=== PATIENT | female | born 1955 | race Caucasian/White ===

== ENCOUNTER 2018-04-30 00:47 | Outpatient (CLI) | payer OTHER, SELFPAY ==
--- NOTE | 2018-04-30 12:55 | DI.MAMMO_ITS ---
SYMPTOM/DIAGNOSIS: SCREENING, Z12.31 MAMMOGRAMS: Mammograms were interpreted according to the usual protocol including computer analysis with CAD system, tomosynthesis and C view imaging. The breasts are of moderate density with fairly symmetrical distribution of fibroglandular tissue. No dominant mass or clumped microcalcification is identified in either breast. The current examination is compared with previous examinations including 01/2017 and there has been no gross interval change in appearance in comparison with the previous studies. CONCLUSION: No specific evidence of malignancy at this time. Routine screening examinations are suggested at yearly intervals in this age group according to the ACS/ACR guidelines. Category 1. Breast density, Category B. MQSA ASSESSMENT OF FINDINGS: Negative. Category 1. Patient will receive a letter notifying them of these results. BI-RADS category B. There are scattered areas of fibroglandular density.
== END 2018-04-30 01:07 ==
PROVIDERS: PCP Family Medicine; Visit Provider Nurse Practitioner Family
DX: Z12.31 Encounter for screening mammogram for malignant neoplasm of breast (principal)
CPT/HCPCS: 77063; 77067

== ENCOUNTER 2018-12-12 11:06 | Outpatient (CLI) | payer OTHER, SELFPAY ==
[2018-12-12 13:10] LABS: ALT 39 U/L (12-78); AST 25 U/L (15-37); Albumin 3.7 g/dL (3.4-5.0); Alkaline Phosphatase 96 U/L (46-116); Anion Gap 11.2 mmol/L (3-11); BUN 14 mg/dL (7-18); Bilirubin, Total 0.4 mg/dL (0.2-1.0); CO2 27.8 mmol/L (21.0-32.0); CREATININE 0.78 mg/dL (0.55-1.02); Calcium 9.8 mg/dL (8.5-10.1); Calculated LDL 137 mg/dL; Chloride 104 mmol/L (98-107); Cholesterol 243 mg/dL (50-200); Glucose 97 mg/dL (70-100); HDL Cholesterol 41 mg/dL (40-60); Potassium 4.2 mmol/L (3.5-5.1); Sodium 143 mmol/L (136-145); Total Protein 7.3 g/dL (6.4-8.2); Triglyceride 326 mg/dL (30-150)
== END 2018-12-12 11:26 ==
PROVIDERS: PCP Family Medicine; Visit Provider Family Medicine
DX: E78.1 Pure hyperglyceridemia (principal); I10 Essential (primary) hypertension
CPT/HCPCS: 36415; 80053; 80061; 83721

== ENCOUNTER 2018-12-18 01:33 | Outpatient (CLI) | payer OTHER, SELFPAY ==
--- NOTE | 2018-12-18 13:48 | DI.RAD_ITS ---
SYMPTOMS/DIAGNOSIS: EARLY MENOPAUSE, E28.319, PREMATURE DEXA SCAN: DEXA scan was performed according to the usual protocol. Findings for the lumbar spine scanning are a T score of -1.7. Findings for the left hip scanning are a T score of -1.4 with left femoral neck T score of -1.8. Left forearm scanning shows a T score of -1.7. CONCLUSION: Findings consistent with osteopenia according to the WHO criteria. Please note that the lateral vertebral scanogram shows no evidence of a vertebral compression fracture.
== END 2018-12-18 01:53 ==
PROVIDERS: PCP Family Medicine; Visit Provider Family Medicine
DX: E28.319 Asymptomatic premature menopause (principal); M85.88 Other specified disorders of bone density and structure, other site
CPT/HCPCS: 77080

== ENCOUNTER 2019-05-21 01:13 | Outpatient (CLI) | payer OTHER, SELFPAY ==
--- NOTE | 2019-05-21 12:18 | DI.MAMMO_ITS ---
EXAM: MG MAMMO SCREENING CLINICAL HISTORY: screening Z12.39. TECHNIQUE: Full field digital CC and MLO mammographic images were obtained with 3D tomosynthesis and utilizing computer aided detection (CAD). COMPARISON: [id number]. FINDINGS: Breast density: C Masses/Architectural Distortion: None seen. Microcalcifications: No suspicious pleomorphic-type calcifications are seen. Skin Thickening/Nipple Retraction: None. Axilla: Unremarkable. IMPRESSION: 1. BI-RADS category 1, negative. No significant interval change with no specific features of maligna ncy noted. 2. Unless there is more urgent need, screening mammography is recommended, as per [employer] guidelines. BI-RADS Cat 1 - Negative Breast Density - Category C - Heterogeneously dense A negative radiographic report should not delay biopsy if a dominant or clinically suspicious mass is present. Up to ten percent of cancers are not identified on mammography. A negative report may reinforce clinical impression. Adenosis and dense breasts may obscure an underlying neoplasm. False positive reports average 6 to 10%. Patient will receive a letter notifying them of these results.
== END 2019-05-21 01:33 ==
PROVIDERS: PCP Family Medicine; Visit Provider Nurse Practitioner Family
DX: Z12.31 Encounter for screening mammogram for malignant neoplasm of breast (principal)
CPT/HCPCS: 77063; 77067

== ENCOUNTER 2019-12-19 01:44 | Outpatient (CLI) | payer MEDICARE, SELFPAY ==
[2019-12-19 12:30] LABS: ALT 41 U/L (14-59); AST 24 U/L (15-37); Albumin 3.9 g/dL (3.4-5.0); Alkaline Phosphatase 87 U/L (46-116); Anion Gap 10.2 mmol/L (3-11); BUN 17 mg/dL (7-18); Bilirubin, Total 0.5 mg/dL (0.2-1.0); CO2 27.8 mmol/L (21.0-32.0); CREATININE 0.83 mg/dL (0.55-1.02); Calcium 9.8 mg/dL (8.5-10.1); Calculated LDL 135 mg/dL (<100); Chloride 102 mmol/L (98-107); Cholesterol 223 mg/dL (<200); Glucose 103 mg/dL (74-106); HDL Cholesterol 36 mg/dL (40-60); Potassium 3.6 mmol/L (3.5-5.1); Sodium 140 mmol/L (136-145); Total Protein 7.2 g/dL (6.4-8.2); Triglyceride 264 mg/dL (<150)
[2019-12-19 12:36] LABS: Hemoglobin A1C 5.9 % (3.8-5.6)
== END 2019-12-19 02:04 ==
PROVIDERS: PCP Family Medicine; Visit Provider Family Medicine
DX: E78.1 Pure hyperglyceridemia (principal); I10 Essential (primary) hypertension; R73.03 Prediabetes
CPT/HCPCS: 36415; 80053; 80061; 83036

== ENCOUNTER 2020-04-14 05:04 | Outpatient (CLI) | payer MEDICARE, SELFPAY ==
[2020-04-14 12:34] LABS: Calculated LDL 62 mg/dL (<100); Cholesterol 158 mg/dL (<200); HDL Cholesterol 39 mg/dL (40-60); Triglyceride 287 mg/dL (<150)
== END 2020-04-14 05:24 ==
PROVIDERS: PCP Family Medicine; Visit Provider Family Medicine
DX: E78.5 Hyperlipidemia, unspecified (principal); I10 Essential (primary) hypertension
CPT/HCPCS: 36415; 80061

== ENCOUNTER 2020-12-28 01:36 | Outpatient (CLI) | payer MEDICARE, SELFPAY ==
--- NOTE | 2020-12-28 08:15 | DI.MAMMO_ITS ---
Exam(s) MAMMO SCREENING EXAM: MAMMO SCREENING CLINICAL HISTORY: screening,Z12.39. TECHNIQUE: Bilateral full field digital CC and MLO mammographic images were obtained with 3D tomosyn thesis and utilizing computer aided detection (CAD). COMPARISON: Prior mammograms dating back to 2010, the most recent being May 2019.. FINDINGS: There are no CAD designations. Right superior breast skin mole again noted. There are no new spiculated masses nor malignant appearing microcalcification groups. There is no significant architectural distortion nor skin thickening-retraction. IMPRESSION: No radiographic evidence of malignancy. BI-RADS Category 1 - Negative Breast Density - Category B - Scattered areas of fibroglandular density Breast density Category C or D implies that the patient has dense breast tissue. Dense breast tissue can make it harder to find cancer on a mammogram. Dense breast tissue is also associated with an incr eased risk of breast cancer. This information about the result of the mammogram report was provided to the patient to raise their awareness. Use this report when you speak with the patient about their risks for breast cancer, which includes their family history. At that time, you may recommend additional screening tests (Ultrasoun d or MRI) as these tests may add significant information. A negative radiographic report should not delay biopsy if a dominant or clinically suspicious mass is present. Up to ten percent of cancers are not identified on mammography. A negative report may reinforce clinical impression. Adenosis and dense breasts may obscure an underlying neoplasm. False positive reports average 6 to 10%. Patient will receive a letter notifying them of these results.
--- NOTE | 2020-12-28 15:22 | DI.RAD_ITS ---
Exam(s) XR LUMBAR SPINE COMPLETE EXAM: XR LUMBAR SPINE COMPLETE CLINICAL HISTORY: continued worsening LOW BACK PAIN, M54.5. TECHNIQUE: 2D digital imaging was performed. COMPARISON: CR LUMBAR SPINE COMPLETE from 04/06/2011 FINDINGS: There is no evidence of fracture nor pars defects. There is now advanced disc space narrowing at L4- 5 level with mild degenerative anterolisthesis of L4 upon L5. Moderate narrowing at L5-S1 level now evident. Also significant new narrowing at L2-3 level. L3-4 level appears similar to previous mild scoliosis convex right. Sacroiliac joints appear unremarkable. IMPRESSION: Progression of degenerative disc disease. DATA REPOSITORY: RADIATION DOSE DELIVERED:
== END 2020-12-28 01:56 ==
PROVIDERS: PCP Nurse Practitioner Family; Visit Provider Nurse Practitioner Family
DX: Z12.31 Encounter for screening mammogram for malignant neoplasm of breast (principal); R92.8 Other abnormal and inconclusive findings on diagnostic imaging of breast; M51.36 Other intervertebral disc degeneration, lumbar region
CPT/HCPCS: 77063; 77067; 72110

== ENCOUNTER 2020-12-30 02:49 | Outpatient (CLI) | payer MEDICARE, SELFPAY ==
[2020-12-30 13:26] LABS: ALT 35 U/L (14-59); AST 19 U/L (15-37); Albumin 3.9 g/dL (3.4-5.0); Alkaline Phosphatase 104 U/L (46-116); Anion Gap 7.5 mmol/L (3-11); BUN 22 mg/dL (7-18); Bilirubin, Total 0.4 mg/dL (0.2-1.0); CO2 27.5 mmol/L (21.0-32.0); CREATININE 0.9 mg/dL (0.55-1.02); Calcium 9.9 mg/dL (8.5-10.1); Chloride 108 mmol/L (98-107); Glucose 103 mg/dL (74-106); Potassium 4.2 mmol/L (3.5-5.1); Sodium 143 mmol/L (136-145); Total Protein 7.1 g/dL (6.4-8.2)
[2020-12-30 13:40] LABS: Calculated LDL 62 mg/dL (<100); Cholesterol 145 mg/dL (<200); HDL Cholesterol 40 mg/dL (40-60); Triglyceride 215 mg/dL (<150)
== END 2020-12-30 02:50 | disposition home or self-care (01) ==
LOC: LOS 02:49
PROVIDERS: PCP Nurse Practitioner Family; Visit Provider Nurse Practitioner Family
DX: I10 Essential (primary) hypertension (principal); R73.03 Prediabetes
CPT/HCPCS: 36415; 80053; 80061; 83036

== ENCOUNTER 2021-05-21 00:34 | Outpatient (CLI) | payer MEDICARE, SELFPAY ==
--- NOTE | 2021-05-21 06:30 | DI.MRI_ITS ---
Exam(s) MR LUMBAR SPINE WO EXAM: MR LUMBAR SPINE WO CLINICAL HISTORY: CHRONIC LOW BACK BILAT PAIN, M54.5. TECHNIQUE: Multiplanar multisequence MRI of the Lumbar spine was performed. COMPARISON: CT ABD PELVIS WITH CONTRAST from 08/08/2017 CR XR LUMBAR SPINE COMPLETE from 12/28/2020 CR XR LUMBAR SPINE COMPLETE from 12/28/2020 FINDINGS: Bones: The last intervertebral disc space is designated the L5/S1 level for the numbering purpose of this examination. The vertebral body heights are well maintained. Alignment is satisfactory. Endpla te degenerative signal changes are present throughout the lumbar spine. Cord: The conus tip ends at the T12 level. It is of normal size and signal intensity. T12-L1: No disc herniations or bulges are present. No central spinal canal or neural foraminal stenos is. L1-2: No disc herniations or bulges are present. No central spinal canal or neural foraminal stenosis . L2-3: There is a mild diffuse disc bulge. There are degenerative changes of the facets. There is mi ld narrowing of the central spinal canal. There is mild right neural foraminal narrowing. No signif icant left neural foraminal stenosis. L3-4: No disc herniations or bulges are present. There are degenerative changes of the facets and hyp ertrophy of the ligamentum flavum. There is minimal narrowing of the central spinal canal.No neural foraminal stenosis. L4-5: There is a small disc herniation with mild extrusion posterior to the L4 vertebral body. There are hypertrophic changes of the facets. There is mild central spinal canal stenosis. No right neur al foraminal stenosis. Moderate left neural foraminal stenosis. L5-S1: There is a mild diffuse disc bulge. There are degenerative changes of the facets and hypertro phy of the ligamentum flavum. These all result in mild narrowing of the central spinal canal. There is mild right neural foraminal narrowing. No significant left neural foraminal stenosis. Soft tissues: The visualized SI joints and sacrum are well maintained. The paraspinal soft tissues ar e unremarkable. There again seen multiple bilateral renal cysts. IMPRESSION: Multilevel degenerative changes in the lumbar spine resulting in central spinal canal and neural fora jamar stenosis as described above. DATA REPOSITORY:
== END 2021-05-21 00:54 ==
PROVIDERS: PCP Nurse Practitioner Family; Visit Provider Nurse Practitioner Family
DX: G89.29 Other chronic pain (principal); M54.50 Low back pain, unspecified; M48.061 Spinal stenosis, lumbar region without neurogenic claudication
CPT/HCPCS: 72148

== ENCOUNTER 2021-09-10 00:39 | Outpatient (CLI) | payer MEDICARE, SELFPAY ==
--- NOTE | 2021-09-10 | DI.RAD_ITS ---
Exam(s) XR LUMBAR SPINE FLEX/EXT ONLY EXAM: XR LUMBAR SPINE FLEX/EXT ONLY CLINICAL HISTORY: EVALUATE DYNAMIC ALIGNMENT, RADICULOPATHY LUMBAR, M54.16,CHRONIC LOW BACK. TECHNIQUE: 2D digital imaging was performed of the lumbar spine. Two images were obtained. Lateral flexion and extension views were obtained. COMPARISON: CR XR LUMBAR SPINE COMPLETE from 12/28/2020 FINDINGS: BONES: No fracture or destructive lesion. There are mild hypertrophic changes of the endplates. Dege nerative facet arthropathy is present. DISKS: Disc space narrowing is seen at L1-L2, L2-L3 and L4-L5. Vacuum discs are seen at L1-L2, L4-L5 and L5-S1. ALIGNMENT: There is minimal retrolisthesis of L1 on L2. This does not change with flexion or extensi on. There is no significant subluxation seen with flexion or extension. SOFT TISSUE: Atherosclerosis. IMPRESSION: 1. Degenerative changes in the lumbar spine. 2. No significant subluxation is induced with flexion or extension. DATA REPOSITORY: RADIATION DOSE DELIVERED:
== END 2021-09-10 00:59 ==
PROVIDERS: PCP Nurse Practitioner Family; Visit Provider Nurse Practitioner
DX: M54.16 Radiculopathy, lumbar region (principal); M54.41 Lumbago with sciatica, right side; M54.42 Lumbago with sciatica, left side; M51.36 Other intervertebral disc degeneration, lumbar region
CPT/HCPCS: 72120

== ENCOUNTER 2021-12-14 03:13 | Outpatient (CLI) | payer MEDICARE, SELFPAY ==
[2021-12-14 12:33] LABS: CREATININE 0.9 mg/dL (0.55-1.02)
== END 2021-12-14 03:14 | disposition home or self-care (01) ==
LOC: LOS 03:13
PROVIDERS: PCP Nurse Practitioner Family; Visit Provider Nurse Practitioner Family
DX: I10 Essential (primary) hypertension (principal)
CPT/HCPCS: 36415; 82565

== ENCOUNTER → 2022-01-18 02:37 | Outpatient (CLI) | payer MEDICARE, SELFPAY ==
--- NOTE | 2022-01-18 08:23 | DI.MAMMO_ITS ---
Exam(s) MAMMO SCREENING EXAM: MAMMO SCREENING CLINICAL HISTORY: screening,z12.39 TECHNIQUE: Mammograms were interpreted according to the usual protocol including computer analysis w [employer] CAD system, tomosynthesis and C-view imaging. COMPARISON: 2011 through 2020 FINDINGS: The breasts are composed of scattered fibroglandular densities, Breast Density category B. No suspicious masses or suspicious microcalcifications are seen. No skin thickening or abnormal axillary lymph nodes are seen. There has been no significant change from prior exams. IMPRESSION: BI-RADS Category 1, Negative mammogram Yearly screening mammography is recommended. Breast Density - Category B, scattered fibroglandular densities. A negative radiographic report should not delay biopsy if a dominant or clinically suspicious mass is present. Up to ten percent of cancers are not identified on mammography. A negative report may reinforce clinical impression. Adenosis and dense breasts may obscure an underlying neoplasm. False positive reports average 6 to 10%. Patient will receive a letter notifying them of these results.
== END ==
PROVIDERS: PCP Nurse Practitioner Family; Visit Provider Nurse Practitioner Family
DX: Z12.31 Encounter for screening mammogram for malignant neoplasm of breast (principal)
CPT/HCPCS: 77063; 77067

== ENCOUNTER 2022-02-22 13:55 | Outpatient (CLI) | payer MEDICARE, SELFPAY ==
--- NOTE | 2022-02-22 13:30 | DI.RAD_ITS ---
Exam(s) XR HIP RT COMPLETE AP PELVIS EXAM: XR HIP RT COMPLETE AP PELVIS INDICATION: right hip f/u. COMPARISON: No exams were available for comparison TECHNIQUE: 2D digital imaging was performed. Three views. FINDINGS: Hip joint spaces are maintained. There is mild acetabular spurring. There is mild spurring at the g reater trochanters and SI joints. There is severe narrowing of the L4-5 and L5-S1 disc spaces. IMPRESSION: Mild degenerative changes of the hips. DATA REPOSITORY: RADIATION DOSE DELIVERED:
== END 2022-02-22 13:56 | disposition home or self-care (01) ==
LOC: DIORS 13:55
PROVIDERS: PCP Nurse Practitioner Family; Referring Provider Nurse Practitioner Family; Visit Provider Student in an Organized Health Care Education/Training Program
DX: M70.61 Trochanteric bursitis, right hip (principal); S76.011A Strain of muscle, fascia and tendon of right hip, initial encounter; X58.XXXA Exposure to other specified factors, initial encounter
CPT/HCPCS: 99203; 73502

== ENCOUNTER → 2022-03-15 01:17 | Outpatient (CLI) | payer MEDICARE, SELFPAY ==
--- NOTE | 2022-03-15 06:30 | DI.MRI_ITS ---
Exam(s) MR LOWER JOINT RT WO EXAM: MR LOWER JOINT RT WO CLINICAL HISTORY: R HIP PAIN,trochanteric bursitis,,m70.61 TECHNIQUE: Multiplanar multisequence MRI of the knee was performed. COMPARISON: CR XR HIP RT COMPLETE AP PELVIS from 02/22/2022 FINDINGS: OSSEOUS: No evidence of stress fracture, AVN, nor bone edema. No significant aggressive appearing os seous lesions. There is a small 6 x 5 millimeter bone lesion in the intertrochanteric region of the right hip which is probably a small benign enchondroma. ARTICULATION: Minimal degenerative changes. No osteophytes. No degenerative subarticular cysts. No prominent joint effusion. LABRUM: No evidence of labral tear. No evidence of paralabral cyst. SOFT TISSUES/MUSCLES: Abnormal signal evident in the right gluteus medius at and distal to the muscul otendinous junction. There is tearing of the tendon just above the greater trochanter level. Mild f luid in this region. No abnormal intraosseous signal in the adjacent greater trochanter. No abnorma l signal in the overlying gluteus hannah nor in the gluteus minimus. No abnormal signal in the anterior musculature nor in the hamstrings attachment. IMPRESSION: 1. There is significant signal abnormality in the gluteus medius muscle musculotendinous junction, an d tendon consistent with tendon tearing just above the greater trochanter. There is no fracture in t he greater trochanter or bone edema. 2. No hip joint effusion evident. 3. No evidence of labral tear. 4. Other findings as above. DATA REPOSITORY:
== END ==
PROVIDERS: PCP Nurse Practitioner Family; Visit Provider Student in an Organized Health Care Education/Training Program
DX: M70.61 Trochanteric bursitis, right hip (principal)
CPT/HCPCS: 73721

== ENCOUNTER → 2022-03-22 10:23 | Outpatient (BNVA) | payer MEDICARE, SELFPAY | PROVIDERS: PCP Nurse Practitioner Family; Referring Provider Nurse Practitioner Family; Visit Provider Student in an Organized Health Care Education/Training Program | DX: X58.XXXA Exposure to other specified factors, initial encounter (principal); M70.61 Trochanteric bursitis, right hip; S76.011A Strain of muscle, fascia and tendon of right hip, initial encounter; M76.31 Iliotibial band syndrome, right leg | CPT/HCPCS: 99214 ==

== ENCOUNTER 2022-04-01 08:55 | Day surgery (SDC) | payer MEDICARE, SELFPAY ==
[2022-04-01] VITALS (10 sets, daily range): BP systolic 99–148; BP diastolic 63–87; PULSE 71–87; RESP 10–20; TEMP 36.4–36.9; O2SAT 93–99; BMI 36.9
--- NOTE | 2022-04-01 08:09 | ANES.PREOP_ITS ---
General Info Date of Service Date Performed: 04/01/22 Height: 5 ft 7 in Weight: 107.048 kg Body Mass Index (BMI): 36.9 Surgical Procedure: Operation Date: 04/01/22 11:20 Proposed Procedure Side Surgeon p Endoscopic Iliotibial Band Release w/Trochanteric Bursectomy & Gluteal Tendon Repair Right Jesse Man MD Meds Allergies and Home Medications Allergies Allergy/AdvReac Type Severity Reaction Status Date / Time No Known Drug Allergies Allergy Verified 04/01/22 09:32 Home Medication Medication Instructions Recorded multivitamin with minerals (One 1 tab PO DAILY 03/19/13 Daily Complete tablet) coenzyme Q10 100 mg capsule 100 mg PO DAILY #90 caps 02/05/20 calcium citrate 250 mg 1 tab PO BID 02/26/20 calcium-vitamin D3 5 mcg (200 unit) tablet (Citracal Regular) ibuprofen 200 mg tablet (Advil) 200 mg PO BID PRN 02/25/21 amlodipine 5 mg tablet 5 mg PO DAILY #90 tabs 12/24/21 atorvastatin 20 mg tablet 20 mg PO QHS #90 tabs 12/24/21 hydrochlorothiazide 12.5 mg tablet 12.5 mg PO DAILY #90 tabs 12/24/21 valsartan 160 mg tablet 160 mg PO DAILY #90 tabs 12/24/21 valerian-passion 1 tab PO DAILY 03/31/22 naqgq-ckzsjp-ognldq-hops-orange 65 mg-65 mg-65 mg tab (Relax and Sleep) Current Visit Medications: Current Medications Generic Name Dose Route Start Last Admin Trade Name Freq PRN Reason Stop Dose Admin Ringer's Solution 1,000 mls @ 30 mls/hr 04/01/22 06:00 IV 04/01/22 16:00 INFUSION NATALIE Cefazolin Sodium 3 gm/ Sodium 100 mls @ 200 mls/hr 04/01/22 06:00 Chloride IVPB 04/01/22 16:00 PREOP NATALIE IV Miscellaneous Supplies 1 each 04/01/22 06:00 Iv Access IV 04/01/22 23:59 DIRECTED NATALIE Sodium Chloride 0 ml 04/01/22 06:00 Normal Saline Flush 10 Ml Syr IV 04/01/22 23:59 PRN PRN Sodium Chloride 0 ml 04/01/22 06:00 Normal Saline 10 Ml Vial IJ 04/01/22 23:59 DIRECTED PRN Sterile Water 0 ml 04/01/22 06:00 Water,Injection,Sterile 10 Ml Vial IJ 04/01/22 23:59 DIRECTED PRN PFSH Active Problems Active Problems: Problem Status Onset Code Iliotibial band syndrome of right side M76.31 Tear of right gluteus medius tendon S76.011A Trochanteric bursitis, right hip M70.61 Lumbosacral spondylosis without myelopathy M47.817 Degenerative disc disease Chronic bilateral low back pain M54.5, G89.29 Hyperlipidemia E78.5 Insomnia G47.00 Sigmoid diverticulosis K57.30 Prediabetes 12/11/17 R73.03 Lichen sclerosus et atrophicus 02/10/12 L90.0 Hypertriglyceridemia 12/11/17 E78.1 Hypertension 05/04/15 I10 Family history of coronary artery disease in father 12/11/17 Z82.49 Atrophic vaginitis 02/10/12 N95.2 Surgical History Surgical History section Cholecystectomy (~03/2013) Colonoscopy - MAC 05/02/14 Diagnostic Laproscopy (~2000) Endometriosis History of bilateral ligation of fallopian tubes History of section History of laparoscopy History of unilateral oophorectomy History of ventral hernia repair (11/21/14) Ligation of fallopian tube Oophrectomy, Left Status post cholecystectomy VENTRAL HERNIA REPAIR 11/21/14; DR. Abena ESPINOSA Tobacco Smoking/Tobacco Use Status: Former Tobacco Use Passive smoking exposure: Yes Second hand exposure: Yes Alcohol Alcohol Intake: current Alcohol intake frequency: a few times a month Alcohol t ype: beer and hard liquor Substance Use Substance use: Never Substance use type: does not use Prental History History 2 Para 1 Hx # Term Pregnancies Multiple births Hx # Pregnancies Ectopic pregnancies AB induced Hx Number of Living Children AB spontaneous Vital Signs and Lab Results Vital Signs Most Recent Vital Signs in EMR: Temp Pulse Resp BP Pulse Ox 36.4 C L 87 17 137/86 96 04/01/22 09:36 04/01/22 09:36 04/01/22 09:36 04/01/22 09:36 04/01/22 09:36 Lab Results Blood Type / Crossmatch: No Data to Display Complete Blood Count: No Data to Display Complete Metabolic Panel: No Data to Display Liver Function Panel: No Data to Display Coagulation Panel: No Data to Display Cardiac Panel: No Data to Display Arterial Blood Gas: No Data to Display Venous Blood Gas: No Data to Display Pancreas Panel: No Data to Display Thyroid Panel: No Data to Display Infectious Disease: No Data to Display Blood Cultures: No Data to Display Toxicology Panel: No Data to Display Imaging and Studies Imaging and Studies Study information below may be from another EMR and interpreted by another provider. Please see original notes in EMR for more complete details. EKG Summary: 02/2020: sinus. Anesthesia Assessment and Plan Anesthesia History Personal History: No History of Anesthesia Complications Family History: No Family History of Anesthesia Complications Exercise Tolerance Exercise Tolerance: Metabolic Equivalents>4 Cardiac & Pulmonary Exam Cardiac Exam: Normal S1/S2 Heart Sounds Pulmonary Exam: Clear Bilateral Breath Sounds Implantable Cardiac Device Does patient have a Pacemaker or an ICD?: No Airway Exam Known Difficult Airway: No Mallampati Class: 4 Mouth Opening: Narrow (< 3cm) Thyromental Distance: Greater than 3 cm Neck Range of Motion: Limited ROM Neck Circumference: Thick Teeth Condition: Removable Dentures/Plates Upper and Removable Dentures/Plates Lower ASA Classification ASA Score: ASA 2 Emergency Case?: No NPO Status NPO Status: NPO Clears >2 hours, Solids >8 hours Anesthesia Plan Resuscitation Status: Full Code Anesthesia Technique: General Anesthesia Airway Planned: Endotracheal Tube Monitors Used: Standard Monitors Preoperative Comments:: 66 yo female for hip scope. Sig PMHx: preDM (A1c 6 /), HTN (HCTZ, amlodipine), former smoker (quit 1985), occ EtOH, chronic LBP. Previous Anes: No airway history noted, but a note from anes in 2012 in regards to a uvula injury.
[2022-04-01] MEDS: Lactated Ringers 1,000 ML 30 ML IV (10:15)
--- NOTE | 2022-04-01 13:30 | DI.RAD_ITS ---
Exam(s) XR HIP RT IN OR EXAM: XR HIP RT IN OR CLINICAL HISTORY: right Iliotibial band release. TECHNIQUE: 2D digital imaging was performed. COMPARISON: No exams were available for comparison FINDINGS: Fluoroscopy provided during orthopedic iliotibial band release. See procedure report for details. Cumulative dose= 2.64mGy IMPRESSION: DATA REPOSITORY: RADIATION DOSE DELIVERED:
--- NOTE | 2022-04-01 13:53 | W.PM.DSUDISC ---
Discharge Plan Disposition Patient Disposition: HOME Condition: Stable Discharge Details Reason For Visit: Right hip surgery Attending Provider: Jesse Man Primary Care Provider: [facility] Meds and New Rx's Prescriptions: New naproxen 250 mg tablet 250 - 500 mg PO BID PRNQty: 20 0RF Rx Instructions: take with a meal aspirin 81 mg tablet,delayed release (DR/EC) 81 mg PO DAILY 14 Days Qty: 14 0RF oxycodone 5 mg tablet 5 - 10 mg PO Q4H MDD 30 mg PRN (Reason: moderate to severe pain) Qty: 12 0RF Continued coenzyme Q10 100 mg capsule 100 mg PO DAILY Qty: 90 3RF calcium citrate-vitamin D3 [Citracal Regular] 250 mg calcium- 200 unit tablet 1 tab PO BID amlodipine 5 mg tablet 5 mg PO DAILY Qty: 90 3RF atorvastatin 20 mg tablet 20 mg PO QHS Qty: 90 3RF hydrochlorothiazide 12.5 mg tablet 12.5 mg PO DAILY Qty: 90 3RF valsartan 160 mg tablet 160 mg PO DAILY Qty: 90 3RF One Daily Complete 1 EACH tablet 1 tab PO DAILY Relax and Sleep 65-65-65 mg Tablet 1 tab PO DAILY Discontinued ibuprofen [Advil] 200 mg tablet 200 mg PO BID PRN Discharge Instructions Additional Instructions: Surgery: Right hip endoscopy with iliotibial band release, trochanteric bursectomy, and gluteal tendon repair Activity: Protected weightbearing with a walker for [6-8 weeks]. Gentle hip range of motion. No strengthening for 3 months. A physical therapy prescription will be sent electronically to begin in about 3 weeks. Prescriptions: Aspirin 81 mg take 1 daily to prevent a blood clot for 2 weeks Naproxen 250 mg take 1-2 every 12 hours with a meal as needed for moderate pain Oxycodone 5 mg take 1-2 every 4-6 hours as needed for severe pain You may use ihap-uca-ulxxbme Tylenol (acetaminophen) as needed for mild pain. These pain medications may be taken all at once or in different combinations as needed. Also, recommend Colace (docusate) as a stool softener as surgery and pain medicine cause constipation. You may try abbi-ebx-qyoolfa diphenhydramine (Benadryl) 25-50 mg nightly as a sleep aid Dressings: Leave dressing in place for 3 days. May then remove and leave open to air or cover incisions with Band-Aids. May shower after 5 days. Follow-up: 10-[address] Man You may take off the leg compression stockings this evening at home. You may also leave them on a few days longer if you have a history of leg swelling or edema. Let us know right away if you develop any redness, drainage, fevers, chest pain, or trouble breathing. Do not drink alcohol or drive for at least 24 hours after anesthesia. Please call the office during business hours with any questions or concerns. DS: Diagnosis Discharge Diagnosis (1) Trochanteric bursitis, right hip: Status: Acute (2) Tear of right gluteus medius tendon: Status: Acute
[2022-04-01] MEDS: Bupivacaine 0.5% Pres-Free W/EPI 30 ML VIAL (14:20)
[2022-04-01] MEDS: EPINEPHrine 30 MG/30 ML VIAL ×2 (14:47→14:48)
[2022-04-01] MEDS: HYDROmorphone 2 MG/ML SYR IVP ×4 (15:45→16:14)
[2022-04-01] MEDS: Normal Saline 10 ML VIAL IJ (15:45)
--- NOTE | 2022-04-01 15:45 | W.PM.DSUDISC ---
Date of service: 04/01/22 Time of Service: 15:45 Discharge Plan Disposition Patient Disposition: HOME Condition: Stable Discharge Details Reason For Visit: Right hip surgery Attending Provider: Jesse Man Primary Care Provider: [facility] Meds and New Rx's Prescriptions: New naproxen 250 mg tablet 250 - 500 mg PO BID PRNQty: 20 0RF Rx Instructions: take with a meal aspirin 81 mg tablet,delayed release (DR/EC) 81 mg PO DAILY 14 Days Qty: 14 0RF oxycodone 5 mg tablet 5 - 10 mg PO Q4H MDD 30 mg PRN (Reason: moderate to severe pain) Qty: 12 0RF Continued coenzyme Q10 100 mg capsule 100 mg PO DAILY Qty: 90 3RF calcium citrate-vitamin D3 [Citracal Regular] 250 mg calcium- 200 unit tablet 1 tab PO BID amlodipine 5 mg tablet 5 mg PO DAILY Qty: 90 3RF atorvastatin 20 mg tablet 20 mg PO QHS Qty: 90 3RF hydrochlorothiazide 12.5 mg tablet 12.5 mg PO DAILY Qty: 90 3RF valsartan 160 mg tablet 160 mg PO DAILY Qty: 90 3RF One Daily Complete 1 EACH tablet 1 tab PO DAILY Relax and Sleep 65-65-65 mg Tablet 1 tab PO DAILY Discontinued ibuprofen [Advil] 200 mg tablet 200 mg PO BID PRN Discharge Instructions Additional Instructions: Surgery: Right hip endoscopy with iliotibial band release, trochanteric bursectomy, and gluteal tendon repair Activity: Protected weightbearing with a walker for 6 weeks]. Gentle hip range of motion. No strengthening for 3 months. A physical therapy prescription will be sent electronically to begin in about 3 weeks. Prescriptions: Aspirin 81 mg take 1 daily to prevent a blood clot for 2 weeks Naproxen 250 mg take 1-2 every 12 hours with a meal as needed for moderate pain Oxycodone 5 mg take 1-2 every 4-6 hours as needed for severe pain You may use osyr-mbz-dtexmbv Tylenol (acetaminophen) as needed for mild pain. These pain medications may be taken all at once or in different combinations as needed. Also, recommend Colace (docusate) as a stool softener as surgery and pain medicine cause constipation. You may try jdtf-nrr-wfpfdta diphenhydramine (Benadryl) 25-50 mg nightly as a sleep aid Dressings: Leave dressing in place for 3 days. Change dressing and/or reinforced with extra pads and tape if needed. May then remove and leave open to air or cover incisions with Band-Aids. May shower after 5 days. Follow-up: 10-[address] Man You may take off the leg compression stockings this evening at home. You may also leave them on a few days longer if you have a history of leg swelling or edema. Let us know right away if you develop any redness, drainage, fevers, chest pain, or trouble breathing. Do not drink alcohol or drive for at least 24 hours after anesthesia. Please call the office during business hours with any questions or concerns. DS: Diagnosis Discharge Diagnosis (1) Trochanteric bursitis, right hip: Status: Acute (2) Tear of right gluteus medius tendon: Status: Acute
--- NOTE | 2022-04-01 15:50 | W.PM.OP ---
Date of service: 04/01/22 Time of Service: 15:50 Operative Note Operative Note DATE OF PROCEDURE: 04/01/22 PRE-OP DIAGNOSIS: Right hip 1. Iliotibial band syndrome 2. Trochanteric bursitis 3. Gluteal tendon tear POST-OP DIAGNOSIS: same PROCEDURE: Right hip endoscopic 1. Iiliotibial band release, CPT# 59448 2. Trochanteric bursectomy, CPT# 93162 3. Gluteal tendon repair, CPT# 34165 SURGEON: Jesse Man PIPELINE MAINTENANCE SUPERVISOR: Nora Benitez ANESTHESIA TYPE: Local By Surgeon and General LMA/ETT Refer to Anesthesia Record ESTIMATED BLOOD LOSS: 5 COMPLICATIONS: None Patient was transported to: PACU Patient's condition: stable Implants: Arthrex SwiveLock 4.75mm x1 Indications: Please see complete medical record for details. Findings: Taught iliotibial band. Inflamed trochanteric bursitis. Hi?grade central gluteus medius partial tearing and hypermobility. Procedure Description: In the operating room, general anesthesia was induced. The patient was positioned supine on the [facility] operating room table. All bony prominences were well-padded. Preoperative antibiotics were administered. The hip was prepped and draped in the usual sterile fashion. The correct patient, procedure, and side of the procedure were all verified prior to incision. 30 cc of 0.5% bupivacaine containing epinephrine was infiltrated about the subcutaneous tissues for the planned anterior lateral and distal anterolateral portals as well as deeply over the greater trochanter. A knife was used to incise the skin for the anterior lateral and distal anterolateral portals followed by blunt dissection subcutaneously. Under fluoroscopic guidance, a switching stick and arthroscope were inserted localizing the iliotibial band over the greater trochanter. Blunt dissection and the mechanical shaver were used to resect fat and overlying tissue about the center of the iliotibial band and carefully expose the anterior and posterior margins. Once there was adequate exposure of the IT band, the greater trochanter was again localized under fluoroscopic guidance with a spinal needle inserted through the skin down to bone. This central area was marked using the radiofrequency ablator. A Bethel blade was brought in and used to create a 2 cm longitudinal incision in line with the IT band fibers as well as extending it in a cruciate fashion with 2 cm incisions anteriorly and posteriorly. The radiofrequency ablator was used to achieve hemostasis. The mechanical shaver was then used to debride the IT band released edges exposing the trochanteric bursa. The mechanical shaver was then used to excise the trochanteric bursa taking care to protect musculature about the margins of the greater trochanter as well as neurovascular structures especially posteriorly. There was excellent visualization of the vastus lateralis as well as gluteus medius confirming appropriate bursa excision. The hip was brought through range of motion including internal and external rotation and there was no impinging iliotibial band tissue or remaining pathologic bursa. The viewing and working portals were switched and appropriate IT band release, trochanteric bursa excision, and hemostasis confirmed. The gluteus medius tendon was inspected given the known high?grade tearing on MRI. It was securely attached posteriorly and anteriorly distally. Centrally to anteriorly there is significant hypermobility and thinning. Liberator elevator was used to probe this region and elevate the sleeve of tissue exposing enough of an opening into the tear to pass the self retrieving suture passer, which was used to place a FiberTape horizontal mattress inverted suture and an additional ripstop suture tape FiberLink cinch mode. Fluoroscopy was used to confirm suture anchor repair placement and soft tissues debrided to expose this location. The undersized punch was used followed by loading the repair sutures on a single 4.75 mm SwiveLock anchor, which was placed with good fixation strength and appropriate tension on the repair. The repair was inspected through range of motion and the tendon demonstrated good fixation and stability. Suction was used to remove fluid from the endoscopic space. The portals were closed using 3-0 Monocryl in a buried fashion. Steri-Strips were applied over the incisions followed by Xeroform, 4 x 4 gauze, an ABD pad, and secured with tape. The patient awoke from anesthesia without complication and was transferred to the recovery room in a stable condition.
--- NOTE | 2022-04-01 16:17 | W.ANESPOSTOP ---
Postoperative Evaluation Date, Time and Location Date Performed: 04/01/22 Time Performed: 16:18 Patient Location: PACU Vital Signs Most Recent Imported Vital Signs: Most Recent Vital Signs Temp Pulse Resp BP Pulse Ox 36.9 C 71 12 146/83 H 97 04/01/22 15:55 04/01/22 15:55 04/01/22 15:55 04/01/22 15:55 04/01/22 15:55 Pain Score Most Recent Pain Score: Most Recent Pain Score Pain Level 8 04/01/22 15:55 Assessment Mental Status: Awake (Alert & Oriented to Patient Baseline) Airway and Respiratory Function: Patent airway with normal (patient baseline) respiratory exam Cardiovascular Function: Hemodynamically Stable Hydration Status: Adequately Hydrated Nausea & Vomiting: No Nausea or Vomiting Pain: Pain is Moderate or Severe Postoperative Pain Management: Pain being addressed with medication Peripheral Nerve Block: Patient did not receive a nerve block
[2022-04-01] MEDS: oxyCODONE 5 MG TAB PO (16:46)
== END 2022-04-01 17:25 | disposition home or self-care (01) ==
PROVIDERS: PCP Nurse Practitioner Family; Visit Provider Student in an Organized Health Care Education/Training Program
PROC: (CPT 29863; principal; 2022-04-01 11:00)
DX: M70.61 Trochanteric bursitis, right hip (principal); S76.011A Strain of muscle, fascia and tendon of right hip, initial encounter; X58.XXXA Exposure to other specified factors, initial encounter; R73.03 Prediabetes
CPT/HCPCS: 27062; 27305; 27006; 73501; J0131; J1100; J1170; J1885; J2405; J2704

== ENCOUNTER → 2022-04-13 13:11 | Outpatient (BNVA) | payer MEDICARE, SELFPAY | PROVIDERS: PCP Nurse Practitioner Family; Referring Provider Nurse Practitioner Family; Visit Provider Student in an Organized Health Care Education/Training Program | DX: S76.011D Strain of muscle, fascia and tendon of right hip, subsequent encounter (principal); X58.XXXD Exposure to other specified factors, subsequent encounter; M70.61 Trochanteric bursitis, right hip ==

== ENCOUNTER → 2022-06-28 08:48 | Outpatient (BNVA) | payer MEDICARE, SELFPAY | PROVIDERS: PCP Nurse Practitioner Family; Referring Provider Nurse Practitioner Family; Visit Provider Student in an Organized Health Care Education/Training Program | DX: M70.61 Trochanteric bursitis, right hip (principal); S76.011D Strain of muscle, fascia and tendon of right hip, subsequent encounter; X58.XXXD Exposure to other specified factors, subsequent encounter ==

== ENCOUNTER 2022-12-29 10:34 | Outpatient (CLI) | payer MEDICARE, SELFPAY ==
[2022-12-29 12:37] LABS: CREATININE 0.9 mg/dL (0.55-1.02); Calculated LDL 61 mg/dL (<100); Cholesterol 154 mg/dL (<200); HDL Cholesterol 42 mg/dL (40-60); Potassium 3.5 mmol/L (3.5-5.1); Triglyceride 256 mg/dL (<150)
[2022-12-29 12:51] LABS: Hemoglobin A1C 6.1 % (<5.7)
== END 2022-12-29 10:35 | disposition home or self-care (01) ==
LOC: LOS 10:34
PROVIDERS: PCP Nurse Practitioner Family; Referring Provider Nurse Practitioner Family; Visit Provider Nurse Practitioner Family
DX: I10 Essential (primary) hypertension (principal); R73.03 Prediabetes; E78.5 Hyperlipidemia, unspecified
CPT/HCPCS: 36415; 80061; 82565; 83036; 84132

== ENCOUNTER 2024-01-23 02:36 | Outpatient (CLI) | payer MEDICARE, SELFPAY ==
[2024-01-23 13:01] LABS: CREATININE 0.9 mg/dL (0.55-1.02); Calculated LDL 59 mg/dL (<100); Cholesterol 151 mg/dL (<200); Estimated GFR 68.77 (mL/min/1.73m2); HDL Cholesterol 47 mg/dL (40-60); Triglyceride 229 mg/dL (<150)
[2024-01-23 15:56] LABS: Hemoglobin A1C 6.3 % (<5.7)
== END 2024-01-23 02:37 | disposition home or self-care (01) ==
LOC: LOS 02:36
PROVIDERS: PCP Nurse Practitioner Family; Visit Provider Nurse Practitioner Family
DX: E78.2 Mixed hyperlipidemia (principal); R73.03 Prediabetes; I10 Essential (primary) hypertension
CPT/HCPCS: 36415; 80061; 82565; 83036; 84132

== ENCOUNTER 2024-03-28 01:02 | Outpatient (CLI) | payer MEDICARE, SELFPAY ==
--- NOTE | 2024-03-28 06:45 | DI.MRI_ITS ---
Exam(s) MR LUMBAR SPINE WO EXAM: MR LUMBAR SPINE WO CLINICAL HISTORY: Worsening chronic bilat low back pain, m54.5,g89.29. TECHNIQUE: Multiplanar multisequence MRI of the Lumbar spine was performed. COMPARISON: MR MR LUMBAR SPINE WO from 05/21/2021 CR XR LUMBAR SPINE FLEX/EXT ONLY from 09/10/2021 FINDINGS: Bones: The last intervertebral disc space is designated the L5/S1 level for the numbering purpose of this examination. The vertebral body heights are well maintained. There is a mild left convex curva ture of the lumbar spine. There are endplate degenerative signal changes present throughout the lumb ar spine. The findings are most marked at the L1-L2 disc level. Cord: The conus tip ends at the T12 level. It is of normal size and signal intensity. T12-L1: No disc herniations or bulges are present. No central spinal canal or neural foraminal stenos is. L1-2: No disc herniations or bulges are present. Degenerative changes of the facets are seen. There is mild narrowing of the right neural foramen. No significant left neural foraminal or central spina l canal stenosis is seen. L2-3: There is a small right paracentral disc herniation with extrusion posterior to the L2 vertebral body. There are degenerative changes of the facets with hypertrophy of the ligamentum flavum. Ther e is mild narrowing of the central spinal canal.There is mild right neural foraminal stenosis. No si gnificant left neural foraminal stenosis. L3-4: No disc herniations or bulges are present. There are degenerative changes of the facets and hyp ertrophy of the ligamentum flavum resulting in mild narrowing of the central spinal canal.No signific ant neural foraminal stenosis is seen. L4-5: Diffuse disc bulge. There are hypertrophic changes of the facets and ligamentum flavum. The f indings do result in moderate narrowing of the central spinal canal.There is moderate left neural for aminal stenosis. No significant right neural foraminal stenosis. L5-S1: There is a mild diffuse disc bulge. There are degenerative changes of the facets. No signifi cant central spinal canal stenosis is seen. No significant left neural foraminal stenosis is seen. There is mild right neural foraminal narrowing. Soft tissues: The visualized SI joints and sacrum are well maintained. The paraspinal soft tissues ar e unremarkable. Visualized abdominal organs: There are bilateral multiple simple renal cysts. No follow-up is recomm ended. IMPRESSION: No significant change in the level of degenerative changes, central spinal canal and neural foraminal stenosis in the lumbar spine. DATA REPOSITORY:
== END 2024-03-28 01:22 ==
LOC: DI 01:02
PROVIDERS: PCP Nurse Practitioner Family; Visit Provider Nurse Practitioner Family
DX: M48.062 Spinal stenosis, lumbar region with neurogenic claudication (principal)
CPT/HCPCS: 72148

== ENCOUNTER 2024-08-28 02:05 | Outpatient (CLI) | payer MEDICARE, SELFPAY ==
--- NOTE | 2024-08-28 06:45 | DI.RAD_ITS ---
Exam(s) XR HIP LT COMPLETE AP PELVIS EXAM: XR HIP LT COMPLETE AP PELVIS CLINICAL HISTORY: Worsening pain lt hip,m25.552. TECHNIQUE: 2D digital imaging was performed. Three views. COMPARISON: CR XR HIP RT COMPLETE AP PELVIS from 02/22/2022 FINDINGS: BONES: No acute fracture is present. No bony destructive lesion is seen. Small enthesophytes are pres ent at the greater trochanters. JOINTS: There is mild narrowing of the left superior hip joint space and mild periarticular spurring. Right hip joint space is maintained. SI joints and pubic symphysis are unremarkable. SOFT TISSUE: Normal. IMPRESSION: Mild degenerative changes of the left hip. DATA REPOSITORY: RADIATION DOSE DELIVERED:
== END 2024-08-28 02:25 ==
LOC: DI 02:05
PROVIDERS: PCP Nurse Practitioner Family; Visit Provider Nurse Practitioner Family
DX: M25.552 Pain in left hip (principal)
CPT/HCPCS: 73502

== ENCOUNTER → 2024-10-01 08:37 | Outpatient (BNVA) | payer MEDICARE, SELFPAY | PROVIDERS: PCP Nurse Practitioner Family; Referring Provider Nurse Practitioner Family; Visit Provider Student in an Organized Health Care Education/Training Program | DX: M70.62 Trochanteric bursitis, left hip (principal) | CPT/HCPCS: 99214 ==

== ENCOUNTER 2024-11-27 02:19 | Outpatient (CLI) | payer MEDICARE, SELFPAY ==
--- NOTE | 2024-11-27 09:55 | DI.MRI_ITS ---
Exam(s) MR LOWER JOINT LT WO EXAM: MR LOWER JOINT LT WO CLINICAL HISTORY: ? TROCHANTERIC BURSITIS,lt hip pain,m25.552 TECHNIQUE: Multiplanar multisequence MRI of left hip was performed COMPARISON: MR MR LOWER JOINT RT WO from 03/15/2022 CR XR HIP LT COMPLETE AP PELVIS from 08/28/2024 FINDINGS: Bones: There is no evidence of a fracture or avascular necrosis. No significant joint effusion or labral injury is present. No bone marrow edema is seen. The SI joints and symphysis pubis are well maintained. Musculotendinous structures: There is a tear of the gluteus minimus tendon at its insertion onto the greater trochanter anteriorly. There is hyperintense signal seen in the adjacent soft tissues. There is mild hyperintense signal seen lateral to the gluteus medius tendon. The lateral tendon appears somewhat indistinct and a partial tear should be considered.. There is hyperintense signal seen at the insertion of the hamstring on the ischial tuberosity consistent with tendinosis. There is marked fatty atrophy of the gluteus minimus muscles bilaterally. There is moderate fatty atrophy of the gluteus medius muscles bilaterally. There is mild fatty atrophy of the gluteus hnanah muscles bilaterally. There is diverticulosis seen in the sigmoid colon. IMPRESSION: 1. Large tear involving the left gluteus minimus tendon at its insertion site onto the greater trochanter. 2. Findings suspicious for partial tear of the lateral aspect of the left gluteus medius tendon. 3. Fatty atrophy of the gluteus muscles bilaterally. There is marked fatty atrophy of the gluteus minimus muscles bilaterally. DATA REPOSITORY:
== END 2024-11-27 02:39 ==
LOC: DI 02:19
PROVIDERS: PCP Nurse Practitioner Family; Visit Provider Student in an Organized Health Care Education/Training Program
DX: S76.312A Strain of muscle, fascia and tendon of the posterior muscle group at thigh level, left thigh, initial encounter (principal); X58.XXXA Exposure to other specified factors, initial encounter
CPT/HCPCS: 73721

== ENCOUNTER → 2024-12-03 09:58 | Outpatient (BNVA) | payer MEDICARE, SELFPAY | PROVIDERS: PCP Nurse Practitioner Family; Referring Provider Nurse Practitioner Family; Visit Provider Student in an Organized Health Care Education/Training Program | DX: M70.62 Trochanteric bursitis, left hip (principal); S76.012A Strain of muscle, fascia and tendon of left hip, initial encounter; X58.XXXA Exposure to other specified factors, initial encounter | CPT/HCPCS: 99214 ==

== ENCOUNTER 2024-12-12 05:49 | Day surgery (SDC) | payer MEDICARE, SELFPAY ==
[2024-12-12] VITALS (16 sets, daily range): BP systolic 117–148; BP diastolic 50–88; PULSE 65–82; RESP 10–28; TEMP 36–36.5; O2SAT 84–97; BMI 36.3
--- NOTE | 2024-12-12 06:39 | W.PM.DSUDISC ---
Date of service: 12/12/24 Discharge Plan Disposition Patient Disposition: Home Condition: Stable Discharge Details Attending Provider: Jesse Man Primary Care Provider: [facility] Meds and New Rx's Prescriptions: New aspirin 81 mg tablet,delayed release (DR/EC) 81 mg PO DAILY 14 Days Qty: 14 0RF naproxen 250 mg tablet 250 mg PO BID PRN (Reason: Moderate pain) Qty: 30 0RF oxycodone 5 mg tablet 5 - 10 mg PO Q4H PRN (Reason: Moderate to severe pain) Qty: 18 0RF Continued coenzyme Q10 100 mg capsule 100 mg PO DAILY Qty: 90 3RF calcium citrate-vitamin D3 [Citracal Regular] 250 mg calcium- 200 unit tablet 1 tab PO BID amlodipine 5 mg tablet 5 mg PO DAILY Qty: 90 3RF atorvastatin 20 mg tablet 20 mg PO QHS Qty: 90 3RF hydrochlorothiazide 12.5 mg tablet 12.5 mg PO DAILY Qty: 90 3RF valsartan 160 mg tablet 160 mg PO DAILY Qty: 90 3RF alprazolam [Xanax] 0.5 mg tablet 0.5 mg PO ONCE PRN (Reason: Claustrophobia) Qty: 2 0RF Rx Instructions: Take 1 60 minutes prior to MRI. May take an additional 1 if still anxious 30 minutes prior to MRI. ibuprofen 800 mg tablet 800 mg PO TID PRN (Reason: pain) Qty: 90 2RF One Daily Complete 1 EACH tablet 1 tab PO DAILY Discontinued tramadol 50 mg tablet 50 mg PO BID PRN (Reason: pain) Qty: 56 0RF Discharge Instructions Additional Instructions: Surgery: Left hip endoscopy with iliotibial band release, trochanteric bursectomy, and gluteal tendon repair 12/12/24 Activity: Protected weightbearing with a walker for 6 weeks. Gentle hip range of motion. No strengthening for 3 months. A physical therapy prescription will be sent electronically to begin in about 3 weeks. Prescriptions: Aspirin 81 mg take 1 daily to prevent a blood clot for 2 weeks Naproxen 250 mg take 1-2 every 12 hours with a meal as needed for moderate pain Oxycodone 5 mg take 1-2 every 4-6 hours as needed for severe pain You may use [id number] Tylenol (acetaminophen) as needed for mild pain. These pain medications may be taken all at once or in different combinations as needed. Also, recommend Colace (docusate) as a stool softener as surgery and pain medicine cause constipation. You may try [id number] diphenhydramine (Benadryl) 25-50 mg nightly as a sleep aid Dressings: Leave dressing in place for 3 days. May then remove and leave open to air or cover incisions with Band-Aids. Leave the sticky Steri-Strips in place until they fall off or remove them after you shower. May shower after 5 days. Follow-up: 10-[address] Man You may take off the leg compression stockings this evening at home. You may also leave them on a few days longer if you have a history of leg swelling or edema. Let us know right away if you develop any redness, drainage, fevers, chest pain, or trouble breathing. Do not drink alcohol or drive for at least 24 hours after anesthesia. Please call the office during business hours with any questions or concerns. Discharge Orders Discharge Orders: Discharge Order (Routine); Ordered 12/12/24 Ordered By: Gal Woodruff DS: Diagnosis Discharge Diagnosis (1) Tear of left gluteus minimus tendon: Status: Acute (2) Trochanteric bursitis, left hip: Status: Acute (3) Iliotibial band syndrome of left side: Status: Acute
[2024-12-12] MEDS: Lactated Ringers 1,000 ML 30 ML IV (07:00)
--- NOTE | 2024-12-12 07:04 | W.ANESPRE ---
General Info Date of Service Date Performed: 12/12/24 Height: 5 ft 7 in Weight: 105.1 kg Body Mass Index (BMI): 36.3 Surgical Procedure: Operation Date: 12/12/24 07:50 Proposed Procedure Side Surgeon p Endoscopic Iliotibial Band Release w/Trochanteric Bursectomy and Gluteal Tendon Tear Left Jesse Man MD Meds Allergies and Home Medications Allergies Allergy/AdvReac Type Severity Reaction Status Date / Time No Known Drug Allergies Allergy No Verified 12/12/24 06:16 allergies Home Medication ?Medication ?Instructions ?Recorded multivitamin with minerals (One 1 tab PO DAILY 03/19/13 Daily Complete tablet) coenzyme Q10 100 mg capsule 100 mg PO DAILY #90 caps 02/05/20 calcium 250 mg (as 1 tab PO BID 02/26/20 citrate)-vitamin D3 5 mcg (200 unit) tablet (Citracal Regular) amlodipine 5 mg tablet 5 mg PO DAILY #90 tabs 01/03/24 atorvastatin 20 mg tablet 20 mg PO QHS #90 tabs 01/03/24 hydrochlorothiazide 12.5 mg tablet 12.5 mg PO DAILY #90 tabs 01/03/24 valsartan 160 mg tablet 160 mg PO DAILY #90 tabs 01/03/24 tramadol 50 mg tablet 50 mg PO BID PRN pain #56 tabs 08/23/24 alprazolam 0.5 mg tablet (Xanax) 0.5 mg PO ONCE PRN Claustrophobia 10/01/24 #2 tabs ibuprofen 800 mg tablet 800 mg PO TID PRN pain #90 tabs 11/22/24 Current Visit Medications: Current Medications Generic Name Dose Route Start Last Admin Trade Name Freq PRN Reason Stop Dose Admin Ringer's Solution 1,000 mls @ 30 mls/hr 12/12/24 06:00 IV 12/12/24 23:59 INFUSION NATALIE Cefazolin Sodium 3,000 mg/ 100 mls @ 200 mls/hr 12/12/24 06:00 Sodium Chloride IV 12/12/24 23:59 PREOP NATALIE Tranexamic Acid/Sodium Chloride 1,000 mg in 100 mls @ 600 mls/hr 12/12/24 06:00 IVPB 12/12/24 23:59 PREOP NATALIE IV Miscellaneous Supplies 1 each 12/12/24 06:00 Iv Access IV 12/12/24 23:59 DIRECTED NATALIE Oxycodone HCl 5 - 10 mg 12/12/24 06:41 Oxycodone 5 Mg Tab PO 01/11/25 06:40 Q3H PRN PRN Pain Sodium Chloride 0 ml 12/12/24 06:00 Normal Saline Flush 10 Ml Syr IV 12/12/24 23:59 PRN PRN Sodium Chloride 0 ml 12/12/24 06:00 Normal Saline 10 Ml Vial IJ 12/12/24 23:59 DIRECTED PRN Sterile Water 0 ml 12/12/24 06:00 Water,Injection,Sterile 10 Ml Vial IJ 12/12/24 23:59 DIRECTED PRN PFSH Active Problems Active Problems: Problem Status Onset Code Tear of left gluteus minimus tendon Acute S76.012A Trochanteric bursitis, left hip Acute M70.62 Left hip pain Acute M25.552 Sensorineural hearing loss, bilateral Acute H90.3 History of eustachian tube dysfunction Acute Z86.69 Rhinitis medicamentosa Acute J31.0, T48.5X5A Lumbosacral spondylosis without myelopathy Acute M47.817 Degenerative disc disease Acute Chronic bilateral low back pain Acute M54.5, G89.29 Hyperlipidemia Acute E78.5 Insomnia Acute G47.00 Sigmoid diverticulosis Acute K57.30 Prediabetes Acute 12/11/17 R73.03 Lichen sclerosus et atrophicus Acute 02/10/12 L90.0 Hypertriglyceridemia Acute 12/11/17 E78.1 Hypertension Acute 05/04/15 I10 Family history of coronary artery disease in father Chronic 12/11/17 Z82.49 Atrophic vaginitis Acute 02/10/12 N95.2 Medical History Medical History Iliotibial band syndrome of right side Surgical History Surgical History History of bilateral ligation of fallopian tubes History of section History of laparoscopy History of unilateral oophorectomy History of ventral hernia repair (11/21/14) Status post cholecystectomy VENTRAL HERNIA REPAIR 11/21/14; DR. Abena ESPINOSA Ligation of fallopian tube section Oophrectomy, Left Diagnostic Laproscopy (~2000) Endometriosis Colonoscopy - MAC 05/02/14 Cholecystectomy (~03/2013) Tobacco Smoking/Tobacco Use Status: Former Tobacco Use Passive smoking exposure: No Second hand exposure: Yes Alcohol Alcohol Intake: current Alcohol intake frequency: holidays/special occasions only Alcohol type: beer, wine and hard liquor Substance Use Substance use: Daily Substance use type: marijuana Details: THC gummies for sleep Prental History History 2 Para 1 Hx # Term Pregnancies Multiple births Hx # Pregnancies Ectopic pregnancies AB induced Hx Number of Living Children AB spontaneous Vital Signs and Lab Results Vital Signs Most Recent Vital Signs in EMR: Most Recent Vital Signs Temp Pulse Resp BP Pulse Ox 36.3 C L 79 16 148/80 H 97 12/12/24 06:20 12/12/24 06:20 12/12/24 06:20 12/12/24 06:20 12/12/24 06:20 Imaging and Studies Imaging and Studies Study information below may be from another EMR and interpreted by another provider. Please see original notes in EMR for more complete details. EKG Summary: 02/2020: sinus. Anesthesia Assessment and Plan Anesthesia History Personal History: No History of Anesthesia Complications Family History: No Family History of Anesthesia Complications Exercise Tolerance Exercise Tolerance: Metabolic Equivalents>4 Pertinent Negatives Pertinent Negatives: No Symptoms of GERD, No Major Cardiovascular Symptoms or Complaints, No Major Pulmonary Symptoms or Complaints and No History of CVA/TIA Cardiac & Pulmonary Exam Cardiac Exam: Normal S1/S2 Heart Sounds Pulmonary Exam: Clear Bilateral Breath Sounds Implantable Cardiac Device Does patient have a Pacemaker or an ICD?: No Airway Exam Known Difficult Airway: No Mallampati Class: 2 Mouth Opening: Narrow (< 3cm) Thyromental Distance: Greater than 3 cm Neck Range of Motion: Limited ROM Neck Circumference: Thick Teeth Condition: Removable Dentures/Plates Upper and Removable Dentures/Plates Lower ASA Classification ASA Score: ASA 2 Emergency Case?: No NPO Status NPO Status: NPO Clears >2 hours, Solids >8 hours Anesthesia Plan Resuscitation Status: Full Code Anesthesia Technique: General Anesthesia Airway Planned: LMA Monitors Used: Standard Monitors
--- NOTE | 2024-12-12 07:15 | ROE_ITS ---
Operative Note Operative Note PRE-OP DIAGNOSIS: Left hip 1. Iliotibial band syndrome 2. Trochanteric bursitis 3. Gluteal tendon tear POST-OP DIAGNOSIS: same PROCEDURE: Left hip endoscopic 1. Iiliotibial band release, CPT# 32205 2. Trochanteric bursectomy, CPT# 56358 3. Gluteal tendon repair, CPT# 43545 SURGEON: Jesse Man INSTRUMENTATION AND CONTROLS TECHNICIAN: Gal Woodruff ANESTHESIA TYPE: Local By Surgeon and General LMA/ETT Refer to Anesthesia Record ESTIMATED BLOOD LOSS: 5 COMPLICATIONS: None Patient was transported to: PACU Patient's condition: stable Implants: Arthrex 4.75 mm bio composite swivel lock suture anchor Indications: Please see complete medical record for details. Findings: Thickened and taut iliotibial band. Abundant inflamed trochanteric bursitis. High-grade partial gluteus medius tendon tearing, moderate grade partial gluteus minimus tearing. Procedure Description: In the operating room, general anesthesia was induced. The patient was positioned supine on the [facility] operating room table. All bony prominences were well-padded. Preoperative antibiotics were administered. The hip was prepped and draped in the usual sterile fashion. The correct patient, procedure, and side of the procedure were all verified prior to incision. 30 cc of 0.25% bupivacaine containing epinephrine was infiltrated about the subcutaneous tissues for the planned anterior lateral and distal anterolateral portals as well as deeply over the greater trochanter. A knife was used to incise the skin for the anterior lateral and distal anterolateral portals followed by blunt dissection subcutaneously. Under fluoroscopic guidance, a switching stick and arthroscope were inserted localizing the iliotibial band over the greater trochanter. Blunt dissection and the mechanical shaver were used to resect fat and overlying tissue about the center of the iliotibial band and carefully expose the anterior and posterior margins. Once there was adequate exposure of the IT band, the greater trochanter was again localized under fluoroscopic guidance with a spinal needle inserted through the skin down to bone. This central area was marked using the radiofrequency ablator. A Mathews blade was brought in and used to create a 2 cm longitudinal incision in line with the IT band fibers as well as extending it in a cruciate fashion with 2 cm incisions anteriorly and posteriorly. The radiofrequency ablator was used to achieve hemostasis. The mechanical shaver was then used to debride the IT band released edges exposing the trochanteric bursa. The mechanical shaver was then used to excise the trochanteric bursa taking care to protect musculature about the margins of the greater trochanter as well as neurovascular structures especially posteriorly. There was excellent visualization of the vastus lateralis as well as gluteus medius confirming appropriate bursa excision. The hip was brought through range of motion including internal and external rotation and there was no impinging iliotibial band tissue or remaining pathologic bursa. The viewing and working portals were switched and appropriate IT band release, trochanteric bursa excision, and hemostasis confirmed. The gluteal tendons were examined. The medius and minimus demonstrated tearing as expected. Repair was planned using widely spaced sutures incorporating into a single central SwiveLock anchor, which was localized fluoroscopically. The scorpion suture passer was used to secure with healthy tissue grasps the gluteus medius centrally to posteriorly. The gluteus minimus more anteriorly was then secured with a suture tape FiberLink in cinch mode. Appropriate tissue reduction and hold was confirmed. The undersized punch was then used again with fluoroscopic assistance. The repair sutures were loaded on the SwiveLock anchor, which was deployed with good tendon reduction and bone fixation strength. There was a small gap of minimus more anteriorly distally that was then secured using the sliding safety #2 FiberWire with the scorpion and SMC arthroscopic knots. The repair was inspected and stable with good reduction about the greater trochanter for range of motion and probing. Suction was used to remove fluid from the endoscopic space. The portals were closed using 3-0 Monocryl in a buried fashion. Steri-Strips were applied over the incisions followed by Xeroform, 4 x 4 gauze, an ABD pad, and secured with tape. The patient awoke from anesthesia without complication and was transferred to the recovery room in a stable condition. Date of Procedure: 12/12/24
[2024-12-12] MEDS: ceFAZolin 3,000 MG in Normal Saline 100 ML 200 MG IV (07:45)
[2024-12-12] MEDS: TRANEXAMIC ACID/SOD. CHL. 1,000 MG/100 ML BAG 600 MG IVPB (07:54)
[2024-12-12] MEDS: Bupivacaine 0.25% Pres-Free W/EPI 30 ML VIAL (08:16)
[2024-12-12] MEDS: EPINEPHrine 10 MG/10 ML ML (08:45)
--- NOTE | 2024-12-12 09:10 | DI.RAD_ITS ---
Exam(s) XR HIP LT IN OR EXAM: XR HIP LT IN OR CLINICAL HISTORY: Trochanteric bursitis, left hip. TECHNIQUE: 2D digital imaging was performed. COMPARISON: No exams were available for comparison FINDINGS: Fluoroscopy was provided during left hip intraoperative procedure. See procedure report for details. Fluoroscopy time 12 seconds IMPRESSION: Radiation exposure index/cumulative dose:carson Alexander= 2.39mGy DATA REPOSITORY: RADIATION DOSE DELIVERED:
[2024-12-12] MEDS: HYDROmorphone 2 MG/ML SYR IVP (09:25)
[2024-12-12] MEDS: oxyCODONE 5 MG TAB PO ×2 (10:09→11:33)
--- NOTE | 2024-12-12 10:23 | W.ANESPOSTOP ---
Postoperative Evaluation Date, Time and Location Date Performed: 12/12/24 Time Performed: 10:24 Patient Location: Day Surgery Unit Vital Signs Most Recent Imported Vital Signs: Most Recent Vital Signs Temp Pulse Resp BP Pulse Ox 36 C L 72 16 127/64 94 12/12/24 09:55 12/12/24 09:55 12/12/24 09:55 12/12/24 09:55 12/12/24 09:55 Pain Score Most Recent Pain Score: Most Recent Pain Score Pain Level 3 12/12/24 1020 Assessment Mental Status: Awake (Alert & Oriented to Patient Baseline) Airway and Respiratory Function: Patent airway with normal (patient baseline) respiratory exam Cardiovascular Function: Hemodynamically Stable Hydration Status: Adequately Hydrated Nausea & Vomiting: No Nausea or Vomiting Pain: Pain is tolerable per patient Peripheral Nerve Block: Patient did not receive a nerve block
== END 2024-12-12 12:20 | disposition home or self-care (01) ==
PROVIDERS: PCP Nurse Practitioner Family; Visit Provider Student in an Organized Health Care Education/Training Program
PROC: (CPT 29863; principal; 2024-12-12 07:30)
DX: S76.012A Strain of muscle, fascia and tendon of left hip, initial encounter (principal); M70.62 Trochanteric bursitis, left hip; M76.32 Iliotibial band syndrome, left leg; X58.XXXA Exposure to other specified factors, initial encounter
CPT/HCPCS: 27062; 27305; 27006; 73501; J0131; J0690; J1100; J1171; J1885; J2003; J2405; J2704

== ENCOUNTER → 2024-12-24 10:10 | Outpatient (BNVA) | payer MEDICARE, SELFPAY | PROVIDERS: PCP Nurse Practitioner Family; Referring Provider Nurse Practitioner Family; Visit Provider Student in an Organized Health Care Education/Training Program | DX: Z47.89 Encounter for other orthopedic aftercare (principal); M70.62 Trochanteric bursitis, left hip; M76.32 Iliotibial band syndrome, left leg; S76.012D Strain of muscle, fascia and tendon of left hip, subsequent encounter; X58.XXXD Exposure to other specified factors, subsequent encounter | CPT/HCPCS: 99024 ==

== ENCOUNTER 2025-01-15 02:19 | Outpatient (CLI) | payer MEDICARE, SELFPAY ==
[2025-01-15 13:03] LABS: Anion Gap 5.4 mmol/L (3-11); BUN 16 mg/dL (7-18); CO2 29.6 mmol/L (21.0-32.0); Calcium 10.4 mg/dL (8.5-10.1); Calculated LDL 57 mg/dL (<100); Chloride 105 mmol/L (98-107); Cholesterol 143 mg/dL (<200); Estimated GFR 78.72 (mL/min/1.73m2); Glucose 116 mg/dL (74-106); HDL Cholesterol 44 mg/dL (>or=50); Potassium 3.9 mmol/L (3.5-5.1); Sodium 140 mmol/L (136-145); Triglyceride 213 mg/dL (<150)
[2025-01-15 13:07] LABS: Hemoglobin A1C 6.4 % (<5.7)
== END 2025-01-15 02:20 | disposition home or self-care (01) ==
LOC: LOS 02:19
PROVIDERS: PCP Nurse Practitioner Family; Visit Provider Nurse Practitioner Family
DX: Z13.1 Encounter for screening for diabetes mellitus (principal); Z13.6 Encounter for screening for cardiovascular disorders
CPT/HCPCS: 36415; 80048; 80061; 83036

== ENCOUNTER → 2025-02-11 09:50 | Outpatient (BNVA) | payer MEDICARE, SELFPAY | PROVIDERS: PCP Nurse Practitioner Family; Referring Provider Nurse Practitioner Family; Visit Provider Student in an Organized Health Care Education/Training Program | DX: M76.31 Iliotibial band syndrome, right leg (principal); M76.32 Iliotibial band syndrome, left leg; M70.62 Trochanteric bursitis, left hip; S76.012D Strain of muscle, fascia and tendon of left hip, subsequent encounter; X58.XXXD Exposure to other specified factors, subsequent encounter | CPT/HCPCS: 20610; J1010 ==

== ENCOUNTER → 2025-04-07 08:17 | Outpatient (BNVA) | payer MEDICARE, SELFPAY | PROVIDERS: PCP Nurse Practitioner Family; Referring Provider Nurse Practitioner Family; Visit Provider Podiatrist | DX: R25.2 Cramp and spasm (principal); G62.9 Polyneuropathy, unspecified; G60.9 Hereditary and idiopathic neuropathy, unspecified; I73.89 Other specified peripheral vascular diseases; I87.2 Venous insufficiency (chronic) (peripheral); R60.0 Localized edema | CPT/HCPCS: 99214 ==

== ENCOUNTER 2025-04-09 01:27 | Outpatient (CLI) | payer MEDICARE, SELFPAY ==
--- NOTE | 2025-04-09 07:30 | DI.MAMMO_ITS ---
Exam(s) MAMMO SCREENING EXAM: MAMMO SCREENING CLINICAL HISTORY: screening Z12.39. TECHNIQUE: Bilateral full field digital CC and MLO mammographic images were obtained with 3D tomosynthesis and utilizing computer aided detection (CAD). COMPARISON: Prior mammograms were reviewed. FINDINGS: There has been no significant change in the appearance and distribution of the fibroglandular tissue. Right breast skin mole again noted There are no new spiculated masses nor malignant appearing microcalcification groups. There is no significant architectural distortion nor skin thickening-retraction. IMPRESSION: No radiographic evidence of malignancy. BI-RADS Category 1 - Negative Breast Density - Category B - There are scattered areas of fibroglandular density. Breast density Category C or D implies that the patient has dense breast tissue. Dense breast tissue can make it harder to find cancer on a mammogram. Dense breast tissue is also associated with an increased risk of breast cancer. This information about the result of the mammogram report was provided to the patient to raise their awareness. Use this report when you speak with the patient about their risks for breast cancer, which includes their family history. At that time, you may recommend additional screening tests (Ultrasound or MRI) as these tests may add significant information. A negative radiographic report should not delay biopsy if a dominant or clinically suspicious mass is present. Up to ten percent of cancers are not identified on mammography. A negative report may reinforce clinical impression. Adenosis and dense breasts may obscure an underlying neoplasm. False positive reports average 6 to 10%. Patient will receive a letter notifying them of these results.
== END 2025-04-09 01:47 ==
LOC: DI 01:27
PROVIDERS: PCP Nurse Practitioner Family; Visit Provider Nurse Practitioner Family
DX: Z12.31 Encounter for screening mammogram for malignant neoplasm of breast (principal); R92.323 Mammographic fibroglandular density, bilateral breasts
CPT/HCPCS: 77063; 77067

== ENCOUNTER → 2025-04-17 02:06 | Outpatient (CLI) | payer MEDICARE, SELFPAY ==
--- NOTE | 2025-04-17 07:15 | DI.RAD_ITS ---
Exam(s) RF JOINT INJ. FLUORO GUID RAD EXAM: RF JOINT INJ. FLUORO GUID RAD CLINICAL HISTORY: R HIP PAIN,fluoro guided injection,iliotibial band syndrome rt side. The Patient has had persistent right hip pain. Noninvasive measures have been tried. To serve as both diagnostic and therapeutic, an injection under fluoroscopy was recommended. The risks of the procedure were discussed with their Orthopedic provider and the patient elected to proceed. TECHNIQUE: 2D and realtime digital imaging was performed. CONTRAST MATERIAL: Water soluble contrast was utilized. COMPARISON: No exams were available for comparison FINDINGS: The Patient was greeted in the fluoroscopy room. The correct side was identified and the consent was reviewed with the patient and was signed. The patient was properly positioned on the fluoroscopy table. The right hipwas then prepped and draped. The right hip injection starting point was identified by the bony landmarks and fluoroscopy. The skin and soft tissue in the tract of the injection was anesthetized with 0.25% Bupivacaine. A spinal needle was then inserted into the right hip joint at the level of the junction of the head and neck under fluoroscopic guidance. A small amount of Omnipaque solution was injected to confirm intraarticular placement. Once confirmed, the right hip was injected with 5cc of a solution containing 0.25% Bupivacaine and 40 mg of Depo- Medrol. A bandaid was placed on the injection site. The patient tolerated the procedure well and left the department in good condition. IMPRESSION: Successful right hip injection. RADIATION DOSE DELIVERED: Catherine,r=8.21 mGy
[2025-04-17] MEDS: Bupivacaine 0.25% Pres-Free 10 ML VIAL IJ (14:38)
[2025-04-17] MEDS: Normal Saline - Diluent 50 ML VIAL IJ (14:39)
[2025-04-17] MEDS: Omnipaque 300 MG/ML 10 ML BTL IJ (14:40)
[2025-04-17] MEDS: methylPREDNISolone ACETATE 40 MG/ML VIAL IJ (14:41)
== END ==
LOC: DI 02:07
PROVIDERS: PCP Nurse Practitioner Family; Visit Provider Student in an Organized Health Care Education/Training Program
DX: M76.31 Iliotibial band syndrome, right leg (principal)
CPT/HCPCS: 77002; J0665; J1010

== ENCOUNTER → 2025-04-28 08:47 | Outpatient (BNVA) | payer MEDICARE, SELFPAY | PROVIDERS: PCP Nurse Practitioner Family; Referring Provider Nurse Practitioner Family; Visit Provider Podiatrist | DX: G60.9 Hereditary and idiopathic neuropathy, unspecified (principal); I73.89 Other specified peripheral vascular diseases; I87.2 Venous insufficiency (chronic) (peripheral); R60.0 Localized edema; G25.81 Restless legs syndrome | CPT/HCPCS: 93922 ==

== ENCOUNTER 2025-05-29 08:15 | Outpatient (CLI) | payer MEDICARE, SELFPAY ==
[2025-05-29 08:05] VITALS: BP 149/82; PULSE 88; RESP 18; TEMP 36.5; O2SAT 97
[2025-05-29 08:23] VITALS: PULSE 91; RESP 13; O2SAT 96
[2025-05-29 08:24] VITALS: BP 209/129; PULSE 92; PULSE 93; RESP 19; O2SAT 97
[2025-05-29 08:30] VITALS: PULSE 94; RESP 15; O2SAT 96
[2025-05-29 08:31] VITALS: BP 192/110; PULSE 93; PULSE 96; RESP 13; O2SAT 96
[2025-05-29 08:39] VITALS: BP 155/92; PULSE 87
[2025-05-29] MEDS: Epidural Tray 1 EACH MC (08:44)
[2025-05-29] MEDS: Omnipaque 240 MG/ML 50 ML BTL IJ (08:44)
[2025-05-29] MEDS: methylPREDNISolone ACETATE 40 MG/ML VIAL IJ (08:44)
--- NOTE | 2025-05-29 08:48 | DI.RAD_ITS ---
Exam(s) XR PAIN CLINIC LUMBAR SP 2V EXAM: XR PAIN CLINIC LUMBAR SP 2V CLINICAL HISTORY: DX: Lumbar Radiuclopathy TECHNIQUE: 2D and realtime digital imaging was performed. CONTRAST MATERIAL: Refer to procedure report. COMPARISON: No exams were available for comparison FINDINGS: Fluoroscopy was provided for Dr. Calvillo during the performance of a lumbar epidural steroid injection. Please refer to the procedure report for complete details. Ka,r=17.4 mGy IMPRESSION: RADIATION DOSE DELIVERED: 0.0 0.0 0
--- NOTE | 2025-05-29 08:55 | PDOC.PAIN ---
Date of service: 05/29/25 Time of Service: 08:55 Pain Managment Procedure Note Procedure Note Procedure Note: PROCEDURE NOTE LUMBAR EPIDURAL STEROID INJECTION Date of Service: May 29, 2025 Patient:Amanda Maldonado? Provider: Cuauhtemoc Calvillo DO, MPH Amanda Mas has been referred to the [facility] for a lumbar epidural steroid injection. Pre-operative diagnosis: Lumbosacral Radiculopathy ICD-10 M54.16 Post-operative diagnosis: Same Pre-Procedure Pain: VAS= 6 /10 Comments: I previously evaluated her in the office. Her symptoms are unchanged. Amanda was interviewed and the medical record was reviewed.? There were no medical, pharmacologic, radiographic or other structural contraindications to attempting fluoroscopically guided Lumbar epidural steroid injection.? Risks, potential side effects, indications, and potential benefits of the procedure were reviewed with Amanda.? Questions and concerns were addressed.? After it was clear that Amanda was fully informed about the procedure, the printed consent form was signed by the patient and myself.? Amanda was placed in the prone position on the fluoroscopy table and automated blood pressure cuff and pulse oximeter applied. The skin entry point for entering/approaching the epidural space for the lumbar epidural steroid injection was marked. Following thorough chlorhexadine preparation of the skin and draping and 1% lidocaine infiltration of the skin entry point and subcutaneous tissues, an 18 gauge Touhy needle was placed and advanced under fluoroscopic guidance and with loss of resistance technique into the L5-S1 epidural space. Needle tip placement and depth were aided and confirmed by fluoroscopy. There was no paresthesia or return of blood or CSF through the needle. 1 mls of Omnipaque 240 was injected with clear epidural spread confirmed with fluoroscopy. 80 mg of Depo-Medrol was? injected. This was followed by 1 ml of preservative-free normal saline to flush the steroid out of the needle. There was no unusual discomfort expressed by Amanda. The needle was withdrawn without difficulty. (49 mls of Omnipaque was wasted) Amanda was observed and was without hemodynamic, neurologic, or allergic reactions.? Fluoroscopic images were digitally archived. Amanda's vital signs were stable throughout the procedure and were as recorded in nursing records. Follow up plans and appointments were discussed with Amanda. Post procedure instruction was given as documented in nursing records and having met discharge criteria Amanda was discharged from the [facility]. COMMENTS: No apparent complications. Post-procedure pain: VAS= 6/10. Amanda to contact [facility] as needed. If at least 50% improvement in pain and/or function for at least 3 months is achieved, this procedure can be repeated. I personally performed this entire procedure. CUAUHTEMOC CALVILLO DO, MPH ABPMR-subspecialty board certification in Pain Medicine [facility] Coding Conscious Sedation used for procedure: No CPT Codes: Inj Spine L/S w/Imaging - [id number] ([id number] ~G) Additional Codes: Date of Service () Diagnoses: Lumbar radiculopathy
== END 2025-05-29 08:16 | disposition home or self-care (01) ==
LOC: PC 08:15
PROVIDERS: PCP Nurse Practitioner Family; Visit Provider Preventive Medicine Occupational Medicine
DX: M54.50 Low back pain, unspecified (principal); M54.16 Radiculopathy, lumbar region
CPT/HCPCS: 62323; 72100; J1010; Q9967